=== PATIENT | male | born 1955 | race Caucasian/White ===

== ENCOUNTER 2016-11-15 17:13 | Inpatient (IN) | payer OTHER ==
[~2016-11-15] VITALS: Ht 180.3 cm; Wt 111.3 kg
[2016-11-15 17:18] VITALS: BP_SYST 108
[2016-11-15] MEDS ORDERED: HYDR25TA4 PO (18:26)
[2016-11-15] MEDS ORDERED: FURO40TA5 PO (18:33)
[2016-11-15] MEDS ORDERED: SPIR25TA4 PO (18:33)
[2016-11-15] MEDS ORDERED: AMLO5TAB4 PO (18:33)
[2016-11-15] MEDS ORDERED: POTA8CAP17 PO (18:35)
[2016-11-15] MEDS ORDERED: PRO20 PO (18:36)
[2016-11-15] MEDS ORDERED: LORA10TA7 PO (18:37)
[2016-11-15] MEDS ORDERED: TAMS-11 PO (18:37)
[2016-11-15] MEDS ORDERED: ATEN100T44 PO (18:38)
[2016-11-15] MEDS ORDERED: OMEP20CA10 PO (18:39)
[2016-11-15] MEDS ORDERED: METH500T PO (18:40)
[2016-11-15] MEDS ORDERED: AMIT25TA9 PO (18:40)
[2016-11-15] MEDS ORDERED: ENZA40CA PO (18:41)
[2016-11-15] MEDS ORDERED: VITD2000 PO (18:43)
[2016-11-15] MEDS ORDERED: DIPHENHYDRAMINE INJ 50 MG/ML VIAL IVP ONE (18:45)
[2016-11-15] MEDS ORDERED: CHOL500037 PO (18:45)
[2016-11-15] MEDS ORDERED: MORPHINE 4 MG/ML INJ. SYRINGE IVP ONE (18:45)
[2016-11-15 18:53] LABS: BASOPHILS # (AUTO) 0.2 K/uL (0.0-0.2); BASOPHILS % (AUTO) 1.8 % (0.0-2.0); EOSINOPHILS # (AUTO) 0.1 K/uL (0.0-0.4); EOSINOPHILS % (AUTO) 0.8 % (0.0-4.0); HEMATOCRIT 26.8 % (36-54); HEMOGLOBIN 9.4 g/dL (14.0-18.0); LYMPHOCYTES # (AUTO) 0.5 K/uL (1.0-5.5); LYMPHOCYTES % (AUTO) 6.2 % (20.5-51.5); MEAN CORPUSCULAR HEMOGLOBIN 33 pg (27-31); MEAN CORPUSCULAR HGB CONC 35 % (32-36); MEAN CORPUSCULAR VOLUME 93 fL (79.0-98.0); MONOCYTES # (AUTO) 1.5 K/uL (0.0-1.0); MONOCYTES % (AUTO) 17.5 % (1.7-9.3); NEUTROPHILS # (AUTO) 6.2 K/uL (1.8-7.7); NEUTROPHILS % (AUTO) 73.7 % (40.0-70.0); PLATELET COUNT (AUTO) 244 K/uL (130-430); RED BLOOD CELL COUNT(AUTO) 2.88 MIL/uL (4.2-6.2); RED CELL DISTRIBUTION WIDTH 13.9 % (9.0-15.0); WHITE BLOOD COUNT (AUTO) 8.6 K/uL (4.8-10.8)
[2016-11-15 18:54] LABS: ANION GAP 6 (5-15); CALCIUM 8.6 mg/dL (8.4-11.0); CHLORIDE 101 mmol/L (98-107); CREATININE 2.02 mg/dL (0.55-1.30); GLUCOSE 130 mg/dL (70-99); POTASSIUM 3.1 mmol/L (3.5-5.1); SODIUM SERUM 135 mmol/L (136-145); UREA NITROGEN, BLOOD 29 mg/dL (8-21)
[2016-11-15 18:56] LABS: GFR AFRICAN AMERICAN 43 mL/min (>90)
[2016-11-15 19:10] LABS: ALANINE AMINOTRANSFERASE 13 U/L (12-78); ALBUMIN 2.9 g/dL (3.4-4.8); ASPARTATE AMINOTRANSFERASE 41 U/L (10-37); FREE T4 (FREE THYROXINE) 0.6 ng/dL (0.6-1.6); TOTAL BILIRUBIN 0.2 mg/dL (0.0-1.0); TOTAL PROTEIN, SERUM 7.1 g/dL (6.4-8.3)
[2016-11-15 19:11] LABS: ALCOHOL, BLOOD < 3 mg/dL (<10)
[2016-11-15 19:45] LABS: PROTHROMBIN TIME 10.7 SECS (9.5-12.5)
[2016-11-15] MEDS ORDERED: POTASSIUM CHLORIDE 20 MEQ TAB.PRT.SR PO ONE (19:45)
[2016-11-15] MEDS ORDERED: NS 500 ML IV ONE ×2 (19:45→21:30)
[2016-11-15] MEDS ORDERED: PANTOPRAZOLE SODIUM 80 MG in NS 100 ML IV ONE (21:30)
[2016-11-15 21:38] LABS: BILIRUBIN,URINE NEGATIVE (NEGATIVE); BLOOD, URINE NEGATIVE (NEGATIVE); CLARITY/URINE CLEAR (CLEAR); COLOR,URINE YELLOW (YELLOW); GLUCOSE,URINE NEGATIVE (NEGATIVE); KETONES,URINE NEGATIVE (NEGATIVE); LEUKOCYTE ESTERASE ,URINE NEGATIVE (NEGATIVE); NITRITE, URINE NEGATIVE (NEGATIVE); PROTEIN URINE NEGATIVE (NEGATIVE); UROBILINOGEN,URINE 0.2 (0.2-1.0)
[2016-11-15 21:50] LABS: BARBITURATE, URINE NEGATIVE (NEG <=200); BENZODIAZEPINE, URINE POSITIVE (NEG <=150); CANNABINOID, URINE POSITIVE (NEG <=50); COCAINE, URINE NEGATIVE (NEG <=150); METHAMPHETAMINES SCREEN,URINE POSITIVE (NEG <=500); PHENCYCLIDINE SCREEN,URINE NEGATIVE (NEG <=25); URINE AMPHETAMINE POSITIVE (NEG <=500); URINE METHADONE NEGATIVE (NEG <=200)
[2016-11-15 21:51] LABS: OPIATE, URINE POSITIVE (NEG <=100); UR TRICYCLIC ANTIDEPRESSANTS POSITIVE (NEG <=300); URINE OXYCODONE SCREEN NEGATIVE (NEG <=100); URINE PROPOXYPHENE SCREEN NEGATIVE (NEG <=300)
[2016-11-15 22:05] VITALS: BP_SYST 127
[2016-11-15] MEDS ORDERED: PANTOPRAZOLE SODIUM 40 MG/VIAL (PROTONIX) ONE (22:34)
[2016-11-15] MEDS ORDERED: ACETAMINOPHEN 325 MG TABLET PO PRN (23:15)
[2016-11-15] MEDS ORDERED: traMADol HCL HCL 50 MG TABLET (ULTRAM) PO PRN (23:30)
[2016-11-15 23:42] LABS: BASOPHILS % (AUTO) 0.2 % (0.0-2.0); EOSINOPHILS # (AUTO) 0.1 K/uL (0.0-0.4); EOSINOPHILS % (AUTO) 0.9 % (0.0-4.0); HEMATOCRIT 27.5 % (36-54); HEMOGLOBIN 9.3 g/dL (14.0-18.0); LYMPHOCYTES # (AUTO) 0.4 K/uL (1.0-5.5); LYMPHOCYTES % (AUTO) 5.6 % (20.5-51.5); MEAN CORPUSCULAR HEMOGLOBIN 32 pg (27-31); MEAN CORPUSCULAR HGB CONC 34 % (32-36); MEAN CORPUSCULAR VOLUME 94 fL (79.0-98.0); MONOCYTES # (AUTO) 1.4 K/uL (0.0-1.0); MONOCYTES % (AUTO) 17.5 % (1.7-9.3); NEUTROPHILS % (AUTO) 75.8 % (40.0-70.0); PLATELET COUNT (AUTO) 251 K/uL (130-430); RED BLOOD CELL COUNT(AUTO) 2.94 MIL/uL (4.2-6.2); RED CELL DISTRIBUTION WIDTH 13.8 % (9.0-15.0); WHITE BLOOD COUNT (AUTO) 7.9 K/uL (4.8-10.8)
[2016-11-15] MEDS: traMADol HCL HCL 50 MG TABLET (ULTRAM) PO PRN (23:52)
[2016-11-15] MEDS: LR 1,000 ML IV SCH (23:53)
[2016-11-16 00:13] LABS: CALCIUM 8.1 mg/dL (8.4-11.0); CREATININE 1.66 mg/dL (0.55-1.30)
[2016-11-16] MEDS ORDERED: PANTOPRAZOLE SODIUM 40 MG/VIAL (PROTONIX) ONE ×2 (01:04→05:55)
[2016-11-16 01:05] VITALS: BP_SYST 145
[2016-11-16] MEDS: PANTOPRAZOLE SODIUM 40 MG in NS 50 ML IV SCH ×3 (01:05→12:53)
[2016-11-16 01:31] LABS: IRON (SERUM) 24 mcg/dL (59-158); TOTAL IRON BIND. CAPACITY 263 ug/dL (250-450)
[2016-11-16] MEDS ORDERED: POTASSIUM CHLORIDE 20 MEQ TAB.PRT.SR PO ONE ×2 (02:15→11:00)
[2016-11-16 06:50] LABS: BASOPHILS % (AUTO) 0.1 % (0.0-2.0); EOSINOPHILS # (AUTO) 0.1 K/uL (0.0-0.4); EOSINOPHILS % (AUTO) 0.7 % (0.0-4.0); HEMATOCRIT 27.7 % (36-54); HEMOGLOBIN 9.5 g/dL (14.0-18.0); LYMPHOCYTES # (AUTO) 0.3 K/uL (1.0-5.5); LYMPHOCYTES % (AUTO) 3.9 % (20.5-51.5); MEAN CORPUSCULAR HEMOGLOBIN 32 pg (27-31); MEAN CORPUSCULAR HGB CONC 34 % (32-36); MEAN CORPUSCULAR VOLUME 94 fL (79.0-98.0); MONOCYTES # (AUTO) 1.5 K/uL (0.0-1.0); MONOCYTES % (AUTO) 17.7 % (1.7-9.3); NEUTROPHILS # (AUTO) 6.7 K/uL (1.8-7.7); NEUTROPHILS % (AUTO) 77.6 % (40.0-70.0); PLATELET COUNT (AUTO) 197 K/uL (130-430); RED BLOOD CELL COUNT(AUTO) 2.95 MIL/uL (4.2-6.2); WHITE BLOOD COUNT (AUTO) 8.6 K/uL (4.8-10.8)
[2016-11-16 07:18] LABS: CALCIUM 8.7 mg/dL (8.4-11.0); CREATININE 1.25 mg/dL (0.55-1.30); POTASSIUM 3.2 mmol/L (3.5-5.1); THYROID STIMULATING HORMONE 1.36 uIu/mL (0.34-4.82); TOTAL BILIRUBIN 0.4 mg/dL (0.0-1.0); TOTAL PROTEIN, SERUM 7.4 g/dL (6.4-8.3)
[2016-11-16 08:00] VITALS: BP_SYST 163
[2016-11-16] MEDS: traMADol HCL HCL 50 MG TABLET (ULTRAM) PO PRN ×2 (10:16→21:00)
[2016-11-16] MEDS: LR 1,000 ML IV SCH (10:20)
[2016-11-16 10:47] VITALS: BP_SYST 171
[2016-11-16] MEDS ORDERED: IRON DEXTRAN COMPLEX 25 MG in NS 50 ML IV ONE (11:00)
[2016-11-16] MEDS ORDERED: IRON DEXTRAN COMPLEX 1,000 MG in NS 500 ML IV SCH (12:00)
[2016-11-16] MEDS ORDERED: CARVEDILOL 6.25 MG TABLET (COREG) PO ONE (12:15)
[2016-11-16 12:23] VITALS: BP_SYST 163
[2016-11-16] MEDS ORDERED: MULTIVITAMINS TAB 1 TABLET PO ONE (12:30)
[2016-11-16] MEDS: cloNIDine HCL 0.1 MG TABLET PO PRN (12:54)
[2016-11-16 13:49] LABS: CKMB RELATIVE INDEX 0.4 (0.0-2.9)
[2016-11-16 16:59] VITALS: BP_SYST 151
[2016-11-16 19:35] VITALS: BP_SYST 149
[2016-11-16] MEDS: POTASSIUM CHLORIDE 20 MEQ TAB.PRT.SR PO SCH (21:00)
[2016-11-16] MEDS: CARVEDILOL 6.25 MG TABLET (COREG) PO SCH (21:00)
[2016-11-16] MEDS: MULTIVITAMINS TAB 1 TABLET PO SCH (21:00)
[2016-11-17 00:41] VITALS: BP_SYST 154; BP_SYST 163
[2016-11-17 04:00] VITALS: BP_SYST 173
[2016-11-17] MEDS: cloNIDine HCL 0.1 MG TABLET PO PRN (05:46)
[2016-11-17 06:37] VITALS: BP_SYST 166
[2016-11-17 06:53] LABS: BASOPHILS % (AUTO) 0.1 % (0.0-2.0); EOSINOPHILS % (AUTO) 0.1 % (0.0-4.0); HEMOGLOBIN 11.1 g/dL (14.0-18.0); LYMPHOCYTES # (AUTO) 0.3 K/uL (1.0-5.5); MONOCYTES # (AUTO) 2.2 K/uL (0.0-1.0)
[2016-11-17 06:55] LABS: CALCIUM 9.4 mg/dL (8.4-11.0); CREATININE 0.87 mg/dL (0.55-1.30); POTASSIUM 3.3 mmol/L (3.5-5.1); TOTAL BILIRUBIN 0.6 mg/dL (0.0-1.0); TOTAL PROTEIN, SERUM 8.2 g/dL (6.4-8.3)
[2016-11-17 07:12] LABS: HEMATOCRIT 32.1 % (36-54); LYMPHOCYTES % (AUTO) 2.5 % (20.5-51.5); MEAN CORPUSCULAR HEMOGLOBIN 32 pg (27-31); MEAN CORPUSCULAR HGB CONC 35 % (32-36); MEAN CORPUSCULAR VOLUME 93 fL (79.0-98.0); MONOCYTES % (AUTO) 18.9 % (1.7-9.3); NEUTROPHILS # (AUTO) 9.3 K/uL (1.8-7.7); NEUTROPHILS % (AUTO) 78.4 % (40.0-70.0); PLATELET COUNT (AUTO) 226 K/uL (130-430); RED BLOOD CELL COUNT(AUTO) 3.46 MIL/uL (4.2-6.2); RED CELL DISTRIBUTION WIDTH 13.9 % (9.0-15.0); WHITE BLOOD COUNT (AUTO) 11.8 K/uL (4.8-10.8)
[2016-11-17] MEDS: CARVEDILOL 6.25 MG TABLET (COREG) PO SCH ×2 (08:12→21:39)
[2016-11-17] MEDS: MULTIVITAMINS TAB 1 TABLET PO SCH ×2 (08:12→21:38)
[2016-11-17] MEDS: POTASSIUM CHLORIDE 20 MEQ TAB.PRT.SR PO SCH ×2 (08:13→21:39)
[2016-11-17 08:21] VITALS: BP_SYST 128
[2016-11-17 08:37] LABS: RETICULOCYTE COUNT 2.1 % (0.5-1.5)
[2016-11-17] MEDS ORDERED: POTASSIUM CHLORIDE 20 MEQ TAB.PRT.SR PO ONE (11:30)
[2016-11-17] MEDS ORDERED: ENZALUTAMIDE 40 MG PO SCH (11:45)
[2016-11-17] MEDS ORDERED: METHOCARBAMOL 500 MG TABLET PO PRN (11:45)
[2016-11-17] MEDS ORDERED: LORATADINE 10 MG TABLET PO PRN (11:45)
[2016-11-17] MEDS ORDERED: MILK OF MAGNESIA 30 ML UDC PO PRN ×2 (11:45)
[2016-11-17 11:46] VITALS: BP_SYST 142
[2016-11-17] MEDS: PANTOPRAZOLE SODIUM 40 MG in NS 50 ML IV SCH (11:48)
[2016-11-17] MEDS ORDERED: CHOLECALCIFEROL (VITAMIN D3) 2,000 UNIT TABLET PO ONE (13:00)
[2016-11-17] MEDS ORDERED: TAMSULOSIN HCL 0.4 MG CAP PO ONE (13:00)
[2016-11-17] MEDS ORDERED: SPIRONOLACTONE 25 MG TABLET (ALDACTONE) PO ONE (13:00)
[2016-11-17] MEDS ORDERED: FLUoxetine HCL 20 MG CAPSULE (PROzac) PO ONE (13:00)
[2016-11-17 16:31] VITALS: BP_SYST 146
[2016-11-17] MEDS: LR 1,000 ML IV SCH (18:19)
[2016-11-18 01:11] VITALS: BP_SYST 139
[2016-11-18 03:21] VITALS: BP_SYST 139
[2016-11-18 07:07] LABS: BASOPHILS % (AUTO) 0.1 % (0.0-2.0); EOSINOPHILS % (AUTO) 0.2 % (0.0-4.0); HEMATOCRIT 28.5 % (36-54); HEMOGLOBIN 9.6 g/dL (14.0-18.0); LYMPHOCYTES # (AUTO) 0.3 K/uL (1.0-5.5); LYMPHOCYTES % (AUTO) 3.9 % (20.5-51.5); MEAN CORPUSCULAR HEMOGLOBIN 32 pg (27-31); MEAN CORPUSCULAR HGB CONC 34 % (32-36); MEAN CORPUSCULAR VOLUME 94 fL (79.0-98.0); MONOCYTES # (AUTO) 1.4 K/uL (0.0-1.0); MONOCYTES % (AUTO) 16.9 % (1.7-9.3); NEUTROPHILS # (AUTO) 6.5 K/uL (1.8-7.7); NEUTROPHILS % (AUTO) 78.9 % (40.0-70.0); PLATELET COUNT (AUTO) 205 K/uL (130-430); RED BLOOD CELL COUNT(AUTO) 3.02 MIL/uL (4.2-6.2); RED CELL DISTRIBUTION WIDTH 13.8 % (9.0-15.0); WHITE BLOOD COUNT (AUTO) 8.2 K/uL (4.8-10.8)
[2016-11-18 07:17] LABS: ALBUMIN 2.6 g/dL (3.4-4.8); CALCIUM 9.1 mg/dL (8.4-11.0); CREATININE 0.87 mg/dL (0.55-1.30); POTASSIUM 3.8 mmol/L (3.5-5.1); TOTAL BILIRUBIN 0.4 mg/dL (0.0-1.0); TOTAL PROTEIN, SERUM 7.4 g/dL (6.4-8.3)
[2016-11-18] MEDS: PANTOPRAZOLE SODIUM 40 MG in NS 50 ML IV SCH (07:58)
[2016-11-18] MEDS: LR 1,000 ML IV SCH ×2 (08:08→10:59)
[2016-11-18] MEDS: MULTIVITAMINS TAB 1 TABLET PO SCH (08:09)
[2016-11-18] MEDS: traMADol HCL HCL 50 MG TABLET (ULTRAM) PO PRN (08:10)
[2016-11-18] MEDS: CARVEDILOL 6.25 MG TABLET (COREG) PO SCH (08:11)
[2016-11-18] MEDS: POTASSIUM CHLORIDE 20 MEQ TAB.PRT.SR PO SCH (08:33)
[2016-11-18 08:36] VITALS: BP_SYST 151
[2016-11-18] MEDS ORDERED: FLUoxetine HCL 20 MG CAPSULE (PROzac) PO SCH (09:00)
[2016-11-18] MEDS ORDERED: CHOLECALCIFEROL (VITAMIN D3) 2,000 UNIT TABLET PO SCH (09:00)
[2016-11-18] MEDS ORDERED: ENZALUTAMIDE 40 MG PO SCH (09:00)
[2016-11-18] MEDS ORDERED: SPIRONOLACTONE 25 MG TABLET (ALDACTONE) PO SCH (09:00)
[2016-11-18] MEDS ORDERED: TAMSULOSIN HCL 0.4 MG CAP PO SCH (09:00)
[2016-11-18] MEDS ORDERED: AMITRIPTYLINE HCL 25 MG TABLET (ELAVIL) PO SCH (09:00)
[2016-11-18] MEDS ORDERED: MEPERIDINE HCL/PF 100 MG/ML AMP ONE (11:32)
[2016-11-18] MEDS ORDERED: SIMETHICONE 40 MG/0.6 ML ML ONE (11:32)
[2016-11-18] MEDS ORDERED: MIDAZOLAM HCL 5 MG/5 ML VIAL ONE ×2 (11:33)
[2016-11-18 12:00] VITALS: BP_SYST 135
[2016-11-18] MEDS ORDERED: PANTOPRAZOLE SODIUM 40 MG in NS 50 ML IV SCH (13:43)
[2016-11-18 17:21] VITALS: BP_SYST 138
[2016-11-18 17:29] VITALS: BP_SYST 139
[2016-11-19 05:06] LABS: FOLATE (FOLIC ACID) 8.9 ng/mL (>3.0)
== END 2016-11-18 18:45 | disposition home health service (06) | DRG 253 ==
LOC: SED 17:13 → STU 21:21 → SMU 11-16 14:12 → STU 11-16 14:30 → SMU 11-17 11:53
PROVIDERS: ADMIT Internal Medicine; ATTEND Internal Medicine
PROC: 0DB68ZX Excision of Stomach, Via Natural or Artificial Opening Endoscopic, Diagnostic (ICD-10-PCS; principal; 2016-11-17)
DX: K92.2 Gastrointestinal hemorrhage, unspecified (principal); N17.9 Acute kidney failure, unspecified; E44.1 Mild protein-calorie malnutrition; G72.9 Myopathy, unspecified; I65.29 Occlusion and stenosis of unspecified carotid artery; I10 Essential (primary) hypertension; F17.210 Nicotine dependence, cigarettes, uncomplicated; D50.0 Iron deficiency anemia secondary to blood loss (chronic); D62 Acute posthemorrhagic anemia; K59.00 Constipation, unspecified; E86.0 Dehydration; R29.6 Repeated falls; F19.10 Other psychoactive substance abuse, uncomplicated; K29.00 Acute gastritis without bleeding; Z88.6 Allergy status to analgesic agent; Z85.46 Personal history of malignant neoplasm of prostate; Z91.81 History of falling; Z88.0 Allergy status to penicillin; Z79.899 Other long term (current) drug therapy; Z87.11 Personal history of peptic ulcer disease; Z71.6 Tobacco abuse counseling; Z68.34 Body mass index [BMI] 34.0-34.9, adult
CPT/HCPCS: 36415; 43239; 70450-TC; 71010; 73502; 74000-TC; 76700-TC; 80048; 80053; 80307; 81003; 82085; 82140-TC; 82550-TC; 82553-TC; 82607; 82728; 82746; 83540-TC; 83550-TC; 83605; 83880; 84439; 84443-TC; 84484; 85025; 85044-TC; 85610-TC; 86886; 86900; 86901; 86920; 87040-TC; 87081; 88305; 88312; 88313; 93005; 93306; 93880; 93970; 96361; 96374; 96375; 97116-GP; 97530-GP; 99285; C9113; G0482; J1200; J1750; J2175; J2250; J2270; J7030; J7040; J7120